=== PATIENT | male | born 2000 | race Caucasian/White ===

== ENCOUNTER 2024-02-25 17:49 | Outpatient (CLI) | payer BC, SELFPAY ==
[2024-02-25 12:32] LABS: Abs Immature Grans 0.02 10^3/uL (0.0-0.06); Absolute Basophil Count 0.04 10^3/uL (0.0-0.2); Absolute Eosinophil Count 0.19 10^3/uL (0.0-0.7); Absolute Lymphocyte Count 2.28 10^3/uL (1.2-3.4); Absolute Monocyte Count 0.49 10^3/uL (0.1-0.8); Absolute Neutrophil Count 3.97 10^3/uL (1.2-6.7); Basophils % 0.6; Eosinophils % 2.7; HCT 43.6 % (40.0-50.0); HGB 14.8 g/dL (13.5-17.5); Immature Grans % 0.3; Lymphocytes % 32.6; MCH 27.4 pg (27.0-33.0); MCHC 33.9 % (32.0-36.0); MCV 81 fL (80-95); MPV 9.1 fL (8.0-11.0); Neutrophils % 56.8; Platelet Count 219 10^3/uL (130-400); RDW 12.3 % (11.8-14.1); RDW-SD 35.6 fL; WBC 6.99 10^3/uL (4.4-10.8)
[2024-02-25 12:51] LABS: Hemoglobin A1C 5.5 % (<5.7)
[2024-02-25 13:23] LABS: ALT 32 U/L (16-63); AST 19 U/L (15-37); Albumin 4.1 g/dL (3.4-5.0); Alkaline Phosphatase 42 U/L (46-116); Anion Gap 8.5 mmol/L (3-11); BUN 15 mg/dL (7-18); Bilirubin, Total 0.4 mg/dL (0.2-1.0); CO2 28.5 mmol/L (21.0-32.0); Calcium 9.1 mg/dL (8.5-10.1); Calculated LDL 134 mg/dL (<100); Chloride 105 mmol/L (98-107); Cholesterol 194 mg/dL (<200); Estimated GFR 107.12 (mL/min/1.73m2); Glucose 97 mg/dL (74-106); HDL Cholesterol 43 mg/dL (40-60); Potassium 4.1 mmol/L (3.5-5.1); Sodium 142 mmol/L (136-145); TSH (W/Ref FT4) 1.62 uIU/mL (0.36-3.74); Total Protein 7.9 g/dL (6.4-8.2); Triglyceride 88 mg/dL (<150); Vitamin B12 758 pg/mL (193-986)
[2024-02-25 13:43] LABS: Vitamin D 25 Total 60.2 ng/mL (30-100)
[2024-02-25 22:53] LABS: Hepatitis B Surface Ag Negative (Negative)
[2024-02-25 23:19] LABS: Hepatitis C Ab w Rflx HCV PCR Negative (Negative)
[2024-02-26 09:47] LABS: HIV-1/2 Ag & Ab Screen Negative (Negative)
[2024-02-26 11:55] LABS: HBs Antibody, Quant >1000.0 mIU/mL (See Note); Hepatitis B Surface Ab Positive (See Note)
[2024-02-26 12:36] LABS: Hep B Core Antibody Negative (Negative)
[2024-02-26 12:39] LABS: Hep A Total Ab w Rflx IgM Negative (Negative)
[2024-02-26 13:13] LABS: Chlamydia Result Negative (Negative); GC Result Negative (Negative)
[2024-02-27 16:45] LABS: ANA Interpretation Negative (Negative)
== END 2024-02-25 17:50 | disposition home or self-care (01) ==
LOC: LBO 02-27 17:50
PROVIDERS: Visit Provider Nurse Practitioner Family
DX: E78.5 Hyperlipidemia, unspecified (principal); I10 Essential (primary) hypertension; D51.3 Other dietary vitamin B12 deficiency anemia; E55.9 Vitamin D deficiency, unspecified; Z00.00 Encounter for general adult medical examination without abnormal findings; Z11.3 Encounter for screening for infections with a predominantly sexual mode of transmission
CPT/HCPCS: 36415; 80053; 80061; 82306; 86704; 86706; 86709; 86803; 87340; 87389; 87491; 87591; 82607; 83036; 84443; 85025; 86038

== ENCOUNTER 2024-03-27 22:40 | Emergency (ER) | payer BC, SELFPAY ==
[2024-03-27] VITALS (15 sets, daily range): BP systolic 79–157; BP diastolic 50–79; PULSE 69–89; RESP 12–25; TEMP 37; O2SAT 96–99
--- NOTE | 2024-03-27 22:45 | RT.EKG_ITS ---
APPROVED REPORT Exam: Resting ECG Reason for Exam: dizzy Patient Location: E HR:83 bpm ECG Measurements Heart Rate 83 AXIS WA 168 P 63 QRSd 93 QRS 71 QT 340 T 57 QTc 400 Conclusion Sinus rhythm...normal P axis, V-rate 60- [address] segment or T wave abnormalities to suggest occlusive ME
--- NOTE | 2024-03-27 22:45 | DI.CT_ITS ---
Exam(s) CT HEAD WO EXAM: CT HEAD WO CLINICAL HISTORY: syncope. TECHNIQUE: Imaging Protocol: Axial computed tomography images with coronal and sagittal reformatted images were created and reviewed COMPARISON: No exams were available for comparison FINDINGS: Ventricles and Extra axial spaces: Normal in size and morphology for the patient's age. Hemorrhage: None. Cerebral parenchyma: No evidence of acute infarct or mass. Midline shift: None. Brainstem/Cerebellum: Normal. Calvarium: Normal. Visualized Paranasal sinuses:Clear. Mastoids: Clear. Soft Tissues: Unremarkable. ORBITS: Unremarkable. PITUITARY: Not enlarged. IMPRESSION: No acute intracranial process. RADIATION DOSE DELIVERED: Total DLP DATA REPOSITORY: All CT scans at this facility are submitted to the National Radiology Data Registry (NRDR) Dose Index Registry (DIR) with the [employer] ([employer]). RADIATION OPTIMIZATION: All CT scans at this facility use at least one of these dose optimization te chniques: automated exposure control; mA and/or kV adjustment per patient size (includes targeted exa ms where dose is matched to clinical indication); or iterative reconstruction.
--- NOTE | 2024-03-27 23:04 | ED.GENADUL_ITS ---
Discharge Plan Disposition Patient Disposition: Home Condition: Good Discharge Details Clinical Impression: Syncope Primary Care Provider: Unknown,Unknown ED Provider: Sole Rico Home Meds and New Rx's Prescriptions: No Action No Known Home Meds Discharge Instructions Instructions: Syncope (ED) Additional Instructions: Call your primary care doctor today to schedule an appointment for as soon as possible, no later than early next week, to follow up on your visit today. Return to the emergency department for new or worsening symptoms including chest pain, shortness of breath, lightheadedness, or if you pass out again. HPI General Mode of arrival: ambulatory . Date/Time Provider Initiated Documentation: 03/27/24 22:40 . Limitations to Documentation: no limitations . Information obtained by: patient and family . HPI Narrative: 23yo M with hx depression presenting after syncopal episode, significant other accompanying him. This evening around 945pm while sitting on the couch, just after taking a hit from his nicotine inhaler, he began to feel lightheaded. Vision went dark around the edges. Per his S.O., he lost consciousness for about 4 seconds during which there was some rhythmic shaking of his head. Patient remembers his head moving. When he regained consciousness he was pale and sweaty per his S.O.; he was alert and seemed to know who and where he was, no confusion. He continued to feel somewhat lightheaded for a few minutes but not at all since then. Currently feels back to normal. No chest pain or uche rtness of breath at any point. No headache, nasuea, vomiting, numbness, tingling, weakness, or vertigo. Had a similar episode a few years ago which was attributed to dehydration. He reports being active today, moving the lawn (felt slightly lightheaded while mowing the lawn), and not drinking much fluids other than Monster energy drinks. No family history of early cardiac disease or sudden unexpected . He is otherwise in his usual state of health with no fevers, chills, rash, abdominal pain, dysuria, hematuria, or other concerns. Related Data Home Medications Medication Instructions Recorded Confirmed Unknown [No Known Home Meds] 03/27/24 03/27/24 Allergies Allergy/AdvReac Type Severity Reaction Status Date / Time No Known Allergies Allergy Verified 03/27/24 23:14 General Stated Complaint: Dizzy/Sync JERRI: 3 Review of Systems Narrative: see HPI Exam Narrative Exam Narrative: General: Alert, well appearing, well nourished, in no acute distress. Head: Normocephalic, atraumatic Neck: Trachea midline, ?Neck supple. ENT: ?MMM.? No oropharygeal lesions or exudate. Cardiac: ?RRR, no murmurs appreciated Resp: No respiratory distress. CTAB. Abd: ?Soft, non-distended, nontender : ?No suprapubic tenderness. No CVA tenderness. Extremities: ?No deformities.? No peripheral edema. Neuro: ? GCS 15.? PERRL.? EOMI.? Fluent speech, no dysarthria. Motor- 5/5 strength symmetric bilateral upper and lower extrmeties including shoulder abductors/adductors, elbow flexors/extensors, wrist flexors/extensors, finger abductors/adductors, hipflexors/extensors, knee flexors/extensors, ankle dorsiflexors and planter flexors. Sensation- ?Intact to light touch and symmetric multiple dermatomes including upper and lower extremities Coordination- No dysmetria on finger to nose Gait/station: ?Normal stance.? No truncal ataxia. Steady gait with equal normal steps CRANIAL NERVES: II: Pupils equal and reactive, III, IV, : EOM intact, no gaze preference or deviation, no nystagmus. V: normal sensation in V1, V2, and V3 segments bilaterally VII: no asymmetry, no nasolabial fold flattening VIII: normal hearing to speech IX, X: normal palatal elevation, no uvular deviation XI: 5/5 head turn and 5/5 shoulder shrug bilaterally XII: midline tongue protrusion Course Vital Signs Vital signs: Vital Signs Temperature 37.0 C 03/27/24 22:42 Pulse 79 03/27/24 22:42 Respiratory Rate 12 03/27/24 22:42 Blood Pressure 157/79 H 03/27/24 22:42 Pulse Oximetry 98 03/27/24 22:42 Temperature 37.0 C 03/27/24 22:42 Pulse 79 03/27/24 22:42 Respiratory Rate 12 03/27/24 22:42 Respiratory Effort Normal 03/27/24 22:47 Respiratory Depth Normal 03/27/24 22:47 Respiratory Pattern Normal 03/27/24 22:47 Blood Pressure 157/79 H 03/27/24 22:42 Pulse Oximetry 98 03/27/24 22:42 Oxygen Delivery Method Room Air 03/27/24 22:42 Oxygen Flow Rate 0 03/27/24 22:42 Pain Level 0 03/27/24 22:42 Medical Decision Making 23yo M with hx depression presenting after syncopal episode, significant other accompanying him. Brief ~5 second LOC with associated prodrome this evenign around 2144, some rhythmic head movements noted while unconsciousness. Not post-ictal. No chest pain or shortness of breath at any point. Vital signs reassuring on arrival, normal physical and neurologic exam. Patient does reprot signifcant exertion today and minimal fluid intake. Will give 1L IVFB. Low suspicion for seizure or acute cardiac syndrome given description of events. Will evaluate for life threatening causes with EKG, labs, head CT. -EKG NSR, no ST segment or T wave abnormalities to suggest occluisve RI. No indication of Brugada, long QT, or WpW, -Labs reviewed as below, CBC reassuring with no leukocytosis or anemia, CMP with no significant electrolyte abnormalities, ETOH negative, dimer negative (would not further pursue pulmonary embolism). -Head CT independently reviewed, no large mass or intracranial bleed on my view, agree with radiology read below. -Orthostatic vital signs normal. On reassessment he remains well appearing with normal vital signs. Likely convulsive syncope. No indication for admission based on exam and ED workup. Advised close PCP followup. Discharged home; discharge instructions and return precautions were reviewed with patient who verbalized understanding. All questi ons were answered and he is in full agreement with the plan. Imaging Data Radiologic Study: Imaging: CT Scan Radiologist's impression: IMPRESSION: 1. No acute intracranial hemorrhage is identified. Other findings/details as above. Lab Data Lab results reviewed: Yes I reviewed the patient's lab results. Labs: Laboratory Tests Range/Units 03/27/24 23:00 WBC (4.4-10.8) 10^3/uL 9.34 RBC (4.36-5.78) 10^6/uL 5.03 Hgb (13.5-17.5) g/dL 13.8 Hct (40.0-50.0) % 41.2 MCV (80-95) fL 82 MCH (27.0-33.0) pg 27.4 MCHC (32.0-36.0) % 33.5 RDW (11.8-14.1) % 12.0 Plt Count (130-400) 10^3/uL 188 MPV (8.0-11.0) fL 9.4 Immature Gran % % 0.3 Neutrophils % % 61.8 Lymphocytes % % 28.8 Monocytes % % 7.1 Eosinophils % % 1.6 Basophils % % 0.4 Nucleated RBC % (0.0-0.3) % 0.0 Absolute Neutrophils (1.2-6.7) 10^3/uL 5.77 Absolute Lymphocytes (1.2-3.4) 10^3/uL 2.69 Absolute Monocytes (0.1-0.8) 10^3/uL 0.66 Absolute Eosinophils (0.0-0.7) 10^3/uL 0.15 Absolute Basophils (0.0-0.2) 10^3/uL 0.04 D-Dimer (<500) ng/mlFEU 173 Sodium (136-145) mmol/L 138 Potassium (3.5-5.1) mmol/L 3.9 Chloride (98-107) mmol/L 102 Carbon Dioxide (21.0-32.0) mmol/L 26.4 Anion Gap (3-11) mmol/L 9.6 BUN (7-18) mg/dL 16 Creatinine (0.70-1.30) mg/dL 1.2 Est GFR (CKD-EPI 2020) (mL/min/1.73m2) 86.07 Glucose (74-106) mg/dL 113 H Calcium (8.5-10.1) mg/dL 8.8 Total Bilirubin (0.2-1.0) mg/dL 0.5 AST (15-37) U/L 19 ALT (16-63) U/L 34 Alkaline Phosphatase (46-116) U/L 47 Total Protein (6.4-8.2) g/dL 7.6 Albumin (3.4-5.0) g/dL 4.2 Ethyl Alcohol (<10) mg/dL < 3.0 Quality:SDOH Health Related Social Needs: No Data to Display PFSH All Active Problems (Updated 03/28/24 @ 00:00 by Sole Rico MD) Syncope (Chronic) Social History Smoking risk assessment performed?: No
[2024-03-27 23:12] LABS: Abs Immature Grans 0.03 10^3/uL (0.0-0.06); Absolute Basophil Count 0.04 10^3/uL (0.0-0.2); Absolute Eosinophil Count 0.15 10^3/uL (0.0-0.7); Absolute Lymphocyte Count 2.69 10^3/uL (1.2-3.4); Absolute Monocyte Count 0.66 10^3/uL (0.1-0.8); Absolute Neutrophil Count 5.77 10^3/uL (1.2-6.7); Basophils % 0.4 %; Eosinophils % 1.6 %; HCT 41.2 % (40.0-50.0); HGB 13.8 g/dL (13.5-17.5); Immature Grans % 0.3 %; Lymphocytes % 28.8 %; MCH 27.4 pg (27.0-33.0); MCHC 33.5 % (32.0-36.0); MCV 82 fL (80-95); MPV 9.4 fL (8.0-11.0); Monocytes % 7.1 %; Neutrophils % 61.8 %; Platelet Count 188 10^3/uL (130-400); RBC 5.03 10^6/uL (4.36-5.78); RDW-SD 35.8 fL; WBC 9.34 10^3/uL (4.4-10.8)
[2024-03-27] MEDS: Normal Saline 1,000 ML 1000 ML IV (23:12)
[2024-03-27 23:24] LABS: ALT 34 U/L (16-63); AST 19 U/L (15-37); Albumin 4.2 g/dL (3.4-5.0); Alkaline Phosphatase 47 U/L (46-116); Anion Gap 9.6 mmol/L (3-11); BUN 16 mg/dL (7-18); Bilirubin, Total 0.5 mg/dL (0.2-1.0); CO2 26.4 mmol/L (21.0-32.0); CREATININE 1.2 mg/dL (0.70-1.30); Calcium 8.8 mg/dL (8.5-10.1); Chloride 102 mmol/L (98-107); Estimated GFR 86.07 (mL/min/1.73m2); Glucose 113 mg/dL (74-106); Potassium 3.9 mmol/L (3.5-5.1); Sodium 138 mmol/L (136-145); Total Protein 7.6 g/dL (6.4-8.2)
[2024-03-27 23:31] LABS: ETHANOL BLOOD < 3.0 mg/dL (<10)
[2024-03-27 23:42] LABS: D-Dimer 173 ng/mlFEU (<500)
[2024-03-28] VITALS: BP 121/73; PULSE 70; PULSE 72; RESP 21; O2SAT 96
[2024-03-28 00:01] VITALS: PULSE 76; RESP 15; O2SAT 96
--- NOTE | 2024-03-28 00:02 | DI.VRAD_ITS ---
PROCEDURE INFORMATION: Exam: CT Head Without Contrast Exam date and time: 03/27/2024 11:04 PM Age: 23 years old Clinical indication: Syncope and collapse TECHNIQUE: Imaging protocol: Computed tomography of the head without contrast. COMPARISON: No relevant prior studies available. FINDINGS: Brain: No acute intracranial hemorrhage identified. Cerebral ventricles: No ventriculomegaly. Paranasal sinuses: Visualized sinuses are unremarkable. No fluid levels. Mastoid air cells: Visualized mastoid air cells are well aerated. Bones: Unremarkable. No acute fracture. Soft tissues: Unremarkable. IMPRESSION: 1. No acute intracranial hemorrhage is identified. Other findings/details as above. Dictated and Authenticated by: Sole Harris MD. Ordering:EUGENE Whipple MD
[2024-03-28 00:10] VITALS: PULSE 60; RESP 17; O2SAT 95
== END 2024-03-28 00:14 | disposition home or self-care (01) ==
PROVIDERS: Emergency Provider Student in an Organized Health Care Education/Training Program; PCP Nurse Practitioner Family
DX: R55 Syncope and collapse (principal)
CPT/HCPCS: 36415; 80053; 93005; 96360; 99285; 70450; 80320; 85025; 85379; 93010; 99284